=== PATIENT | female | born 1965 | race Two or more races ===

== ENCOUNTER 2023-07-21 09:07 | Outpatient (CLI) | payer BC | END 2023-07-21 09:18 | disposition home or self-care (01) | LOC: SONOGRAMA 09:07 | PROVIDERS: ATTEND Specialist | DX: M05.79 Rheumatoid arthritis with rheumatoid factor of multiple sites without organ or systems involvement (principal); R94.5 Abnormal results of liver function studies ==

== ENCOUNTER 2023-12-03 12:23 | Outpatient (CLI) | payer BC ==
[~2023-12-03 12:23] MED LIST: AZOR 10-20 MG1 EACH PO; ESOMEPRAZOLE MA10 MG PO; LEVOTHYROXINE88 MC1 PO
== END 2023-12-03 12:30 | disposition home or self-care (01) ==
LOC: MAMO-SONO 12:23
PROVIDERS: ATTEND Obstetrics & Gynecology
DX: N63.21 Unspecified lump in the left breast, upper outer quadrant (principal); N63.12 Unspecified lump in the right breast, upper inner quadrant

== ENCOUNTER 2024-04-01 08:01 | Outpatient (CLI) | payer BC | END 2024-04-01 08:06 | disposition home or self-care (01) | LOC: SONOGRAMA 08:01 | PROVIDERS: ATTEND Specialist | DX: N20.0 Calculus of kidney (principal); M75.122 Complete rotator cuff tear or rupture of left shoulder, not specified as traumatic ==

== ENCOUNTER 2024-12-21 07:21 | Outpatient (CLI) | payer BC | END 2024-12-21 07:25 | disposition home or self-care (01) | LOC: MAMO-SONO 07:21 | PROVIDERS: ATTEND Internal Medicine | DX: Z12.39 Encounter for other screening for malignant neoplasm of breast (principal); Z12.31 Encounter for screening mammogram for malignant neoplasm of breast; M75.102 Unspecified rotator cuff tear or rupture of left shoulder, not specified as traumatic; I11.0 Hypertensive heart disease with heart failure | CPT/HCPCS: 73221 ==